=== PATIENT | female | born 1975 | race Caucasian/White ===

== ENCOUNTER → 2016-09-01 | Outpatient (CLI) | payer OTHER ==
[~2016-09-01] MED LIST: ANT25 PO; ATV5X PO; BACL10TA PO; BUTA50TA6 PO; DICL1GEL28 TOP; DICL1GEL34 TOP; HYDR-3983 PO; IBUP-1428 PO; LIDO1OIN4; MECL1TAB42 PO; MELO15TA4 PO; MULT-506 PO; NAPR500T3 PO; NRN600 PO; ONDA4TAB9 PO; RANI150T3 PO; RBX750 PO; TRAM-10 PO
[2016-09-01 10:57] LABS: BASO % 0.4 %; BASO ABS # 0.02 K/uL (0-0.2); COMPLETE YES; HEMATOCRIT 38.2 % (37-47); LYMPH % 34.3 %; LYMPH ABS # 1.92 K/uL (1.2-3.4); MEAN CELL VOLUME 79.9 fL (80-100); MEAN CORPUSCULAR HEMOGLOBIN 25.5 pg (25-34); MEAN CORPUSCULAR HGB CONC 31.9 g/dl (32-36); MEAN PLATELET VOLUME 11.3 fL (7.4-10.4); MONO % 7.5 %; NEUT % 57.8 %; PLATELET COUNT 182 K/uL (130-400); RED BLOOD COUNT 4.78 M/uL (4.2-5.4)
== END | disposition home or self-care (01) ==
LOC: C.LAB1850 09:46
PROVIDERS: ATTEND Obstetrics & Gynecology
DX: N92.6 Irregular menstruation, unspecified (principal)

== ENCOUNTER → 2016-10-28 | Outpatient (CLI) | payer OTHER ==
--- NOTE | 2016-10-28 15:04 | DIAGNOSTIC IMAGING REPORT ---
CHEST 2 VIEWS ROUTINE CLINICAL HISTORY: Right-sided chest wall pain. COMPARISON STUDY: Chest radiograph January 21, 2015. FINDINGS: There is no pneumothorax or pleural effusion. There are cholecystectomy clips. Lung volumes are normal. Cardiac size is normal. Mediastinal contours are normal. There is no consolidation or evidence of pulmonary edema. IMPRESSION: No acute cardiopulmonary findings. Electronically signed by: Elias Carlos M.D. 10/28/2016 3:03 PM Dictated Date/Time: 10/28/2016 3:02 PM
--- NOTE | 2016-10-28 15:06 | DIAGNOSTIC IMAGING REPORT ---
RIGHT RIBS UNILATERAL MIN 2 VIEWS CLINICAL HISTORY: Right inferior posterior rib pain. COMPARISON STUDY: Chest radiograph September 28, 2012 and bilateral rib series September 09, 2010. FINDINGS: No acute right-sided rib fractures are identified. There are cholecystectomy clips. There is no right pneumothorax. IMPRESSION: No acute right rib fractures. Electronically signed by: Elias Carlos M.D. 10/28/2016 3:05 PM Dictated Date/Time: 10/28/2016 3:03 PM
== END | disposition home or self-care (01) ==
LOC: C.RADBC 14:37
PROVIDERS: ATTEND Family Medicine
DX: R07.89 Other chest pain (principal)

== ENCOUNTER 2017-03-01 19:12 | Emergency (ER) | payer OTHER ==
[~2017-03-01] VITALS: Ht 160 cm; Wt 68.1 kg
[~2017-03-01 19:12] MED LIST changes: -DICL1GEL34 TOP; -HYDR-3983 PO; -IBUP-1428 PO; -LIDO1OIN4; -MECL1TAB42 PO; -MELO15TA4 PO; -NAPR500T3 PO; -RBX750 PO
[2017-03-01 19:25] VITALS: TEMP 37; Ht 160 cm; Wt 68.1 kg
[2017-03-01] MEDS ORDERED: XYLOCAINE 1%/SOD BICARB 20 ML VIAL INFIL ONE ×2 (19:32→19:45)
--- NOTE | 2017-03-01 19:32 | EMERGENCY ROOM VISIT NOTE ---
History Report prepared by Santos: Trell Baez Under the Supervision of: Dr. Gaston Casper M.D. First contact with patient: 19:26 Chief Complaint: LACERATION/CUT (SUT/DERMABOND) Stated Complaint: CUT LEFT LEG, BRUISE ON HAND History of Present Illness The patient is a 41 year old female who presents to the Emergency Room with complaints of a mechanical fall that occurred around 3 hours ago. She says that she tripped and fell over bicycles in her shed. The patient notes that she has a laceration on her left knee from hitting the edge of a toolbox. She also started noticing right hand swelling when she got here. The patient denies any loss of consciousness, neck pain, back pain, chest pain, abdominal pain, or elbow pain. She is not on any blood thinners. Her last tetanus shot was 13 years ago. Source of History: patient Onset: 3 hours ago Position: other (global - fall) Quality: other (mechanical) Associated Symptoms: No LOC, No neck pain, No chest pain, No abdominal pain , No back pain Note: Associated symptoms: Laceration on left knee. Right hand swelling. Denies elbow pain. Review of Systems See HPI for pertinent positives & negatives. A total of 6 systems reviewed and were otherwise negative. Past Medical & Surgical Medical Problems: (1) MIGRAINE W/O AURA W/O INTRACT MGRN W/O STATUS MIGRAINOSUS (2) MYALGIA AND MYOSITIS NOS Family History FH: HTN (hypertension) Social History Smoking Status: Never Smoker Drug Use: none Marital Status: Housing Status: lives with family Current/Historical Medications Scheduled Gabapentin (Gabapentin), 1-2 TABS PO HS Multivitamin (Multivitamin), 1 TAB PO QAM Scheduled PRN Baclofen (Lioresal), 10-20 MG PO TID PRN for Muscle Spasms Diclofenac Sod (Voltaren 1% Top Gel), 1 APPLN TOP QID PRN for Pain Ibuprofen (Motrin), 800 MG PO BID PRN for Pain Lorazepam (Lorazepam), 0.5 MG PO HS PRN for Sleep Ondansetron (Ondansetron HCl), 4 MG PO Q4-6HRS PRN for Nausea Ranitidine Hcl (Zantac), 150 MG PO DAILY PRN for PRN Allergies Coded Allergies: Doxepin (Unverified Allergy, Mild, 03/07/15) hallucination Duloxetine (Unverified Allergy, Mild, 03/07/15) hallucination Escitalopram (Unverified Allergy, Mild, 03/01/17) increased depression Fentanyl (Verified Allergy, Mild, NAUSEATED WITH THE PATCHES, 03/01/17) Fluoxetine (Unverified Allergy, Mild, 03/01/17) increase depression Pregabalin (Verified Allergy, Mild, EDEMA, 03/01/17) Tramadol (Unverified Allergy, Mild, 03/01/17) seizure risk Nitrofurantoin (Verified Allergy, Unknown, "RASH, HIVES", 03/01/17) Penicillins (Verified Allergy, Unknown, 03/01/17) Sulfa Antibiotics (Verified Allergy, Unknown, ., 03/01/17) Aspirin (Unverified Adverse Reaction, Mild, HEADACHES, 03/01/17) Cephalexin (Unverified Adverse Reaction, Mild, itchy face, 03/01/17) Physical Exam Vital Signs Date Time Temp Pulse Resp B/P (MAP) Pulse Ox O2 Delivery O2 Flow Rate FiO2 03/01/17 20:33 76 20 138/78 99 03/01/17 19:25 37.0 91 20 145/93 97 Room Air Physical Exam GENERAL: Patient is well appearing and in minimal distress. NECK: No stridor, no adenopathy, no meningismus, trachea is midline. BACK: No midline tenderness, no CVA tenderness EXTREMITIES: Swelling and tenderness to palpation of right hand with ecchymosis , full range of motion, neurovascularly intact. 1.5 cm non-bleeding laceration to left anterior lower thigh, neurovascularly intact. NEUROLOGIC: Alert and oriented, no acute motor or sensory deficits, no focal weakness, cranial nerves grossly intact. SKIN: No rash, no jaundice, no diaphoresis. Medical Decision & Procedures ER Provider Diagnostic Interpretation: X ray results are stated below per my interpretation and the radiologist's interpretation. RIGHT HAND MIN 3 VIEWS ROUTINE CLINICAL HISTORY: right hand cont ustion/bruising Right trauma COMPARISON: None. DISCUSSION: The bones and joint spaces appear intact. There is no evidence of fracture, dislocation or bony disease. There is no evidence for soft tissue swelling. IMPRESSION: Negative study The above report was generated using voice recognition software. It may contain grammatical, syntax or spelling errors. Electronically signed by: Nicolas Muse M.D. 03/01/2017 7:58 PM Dictated Date/Time: 03/01/2017 7:57 PM Medications Administered Medications (Trade) Dose Ordered Sig/Paty Route Start Time Stop Time Status Last Admin Dose Admin Diphtheria/ Pertussis/Tetanus Vacc (Adacel Inj) 0.5 ml ONCE ONCE IM. 03/01/17 19:45 03/01/17 19:46 DC 03/01/17 20:24 0.5 ML ED Course 1925: The patient was evaluated in room A3. A complete history and physical exam was performed. 1944: Ordered Adacel Inj 0.5 ml IM, Buffered Lidocaine 1% Inj 20 ml INFIL. 2019: Reevaluated the patient and she is resting comfortably. Discussed results and discharge instructions: She verbalized understanding and agreement. The patient is ready for discharge. Medical Decision Differential: Intracranial Injury, Cervical Injury, Intrathoracic/Abdominal Injury, Neurologic Injuries, Fractures/Dislocations, Lacerations, Tetanus Status , amongst other pathologies entertained. 41 yr old female with mechanical fall resulting in contusion right hand (no fx on xray) and small laceration left anterior thigh without bleeding nor evidence of deep puncture. Sutured and she was given tetanus update. Stable and feeling well. Reviewed wound/suture and contusion care. Head Trauma GCS Score: 15 Medication Reconcilliation Current Medication List: was personally reviewed by me Blood Pressure Screening Patient's blood pressure: Elevated blood pressure Blood pressure disposition: Elevated BP felt to be situational Impression Primary Impression: Contusion of hand, right Additional Impressions: Laceration of thigh, left [id number] (DTP) vaccination Scribe Attestation The scribe's documentation has been prepared under my direction and personally reviewed by me in its entirety. I confirm that the note above accurately reflects all work, treatment, procedures, and medical decision making performed by me. Departure Information Dispostion Home / Self-Care Referrals Jeramie Larios D.O. (PCP) Patient Instructions Bruises Contusions, ED Laceration All, My [facility] Additional Instructions Monitor for signs of infection. Sutures should be removed by your primary care provider or ED in 7 to 10 days. Problem Qualifiers Additional Impressions: Laceration of thigh, left Encounter type: initial encounter Qualified Codes: S71.112A - Laceration without foreign body, left thigh, initial encounter
[2017-03-01] MEDS ORDERED: DIPHTHERIA/TETANUS/PERTUSSIS 0.5 ML SYR/VIAL IM. ONE (19:45)
[2017-03-01] MEDS ORDERED: IBUP-1428 PO (19:53)
--- NOTE | 2017-03-01 20:00 | DIAGNOSTIC IMAGING REPORT ---
RIGHT HAND MIN 3 VIEWS ROUTINE CLINICAL HISTORY: right hand cont ustion/bruising Right trauma COMPARISON: None. DISCUSSION: The bones and joint spaces appear intact. There is no evidence of fracture, dislocation or bony disease. There is no evidence for soft tissue swelling. IMPRESSION: Negative study. The above report was generated using voice recognition software. It may contain grammatical, syntax or spelling errors. Electronically signed by: Nicolas Muse M.D. 03/01/2017 7:58 PM Dictated Date/Time: 03/01/2017 7:57 PM
--- NOTE | 2017-03-01 20:08 | EMERGENCY ROOM VISIT NOTE ---
ED Visit Note EMERGENCY DEPARTMENT PROCEDURE NOTE: EMERGENCY DEPARTMENT COURSE: The 1.5 cm left thigh wound was prepped with Betadine and draped with sterile towels. The wound was anesthetized with 1% plain buffered lidocaine. The laceration was irrigated copiously using normal saline solution and direct pressure irrigation. The wound was repaired using 3 , 4-0 nylon sutures. Bacitracin and a light dressing were applied. Patient tolerated the procedure well.
[2017-03-01 20:33] VITALS: BP 138/78; PULSE 76; O2SAT 99
== END 2017-03-01 20:35 | disposition home or self-care (01) ==
LOC: C.EDB 19:13 → C.EDA 20:35
DX: S60.221A Contusion of right hand, initial encounter (principal); S71.112A Laceration without foreign body, left thigh, initial encounter; Z23 Encounter for immunization; M79.89 Other specified soft tissue disorders; Z79.899 Other long term (current) drug therapy; Z83.3 Family history of diabetes mellitus; W01.0XXA Fall on same level from slipping, tripping and stumbling without subsequent striking against object, initial encounter

== ENCOUNTER 2017-03-11 16:54 | Emergency (ER) | payer OTHER ==
[~2017-03-11] VITALS: Ht 160 cm; Wt 71.3 kg
[~2017-03-11 16:54] MED LIST changes: -ANT25 PO; -BUTA50TA6 PO; +IBUP-1428 PO; -TRAM-10 PO
[2017-03-11 16:58] VITALS: TEMP 36.9
[2017-03-11] MEDS ORDERED: MECL1TAB42 PO ×2 (17:15→19:06)
[2017-03-11] MEDS ORDERED: DICL1GEL34 TOP (17:15)
[2017-03-11] MEDS ORDERED: SODIUM CHLORIDE 0.9% 1000ML 1,000 ML IV STA (17:20)
--- NOTE | 2017-03-11 17:27 | EMERGENCY ROOM VISIT NOTE ---
History Report prepared by Santos: Sanjuana Swanson Under the Supervision of: Dr. Yaakov Dodge M.D. First contact with patient: 17:11 Chief Complaint: DIZZY Stated Complaint: DIZZY, MAY PASS OUT, SHAKING Nursing Triage Summary: pt reports she was at PCP office and got very dizzy and lightheaded PCP did EKG, Lab work and sent her here for evaluated and admission History of Present Illness The patient is a 41 year old female who presents to the Emergency Room with complaints of worsening generalized weakness that started today. She notes that she has had few a recent syncopal incidents. Her fiance notes that she has uncontrollable arm and leg movements at night. The patient also notes that before a syncope incident her eyes flutter uncontrollably. She also says at times she feels like her body is "ripping inside out". The patient denies having nausea, vomiting, diarrhea, or fever. She states she is scheduled for iron infusions for tomorrow morning Source of History: patient Onset: today Position: other (generalized) Quality: other (weakness) Timing: worsening Associated Symptoms: No fevers, No nausea, No vomiting, No diarrhea Note: associated symptoms: recent syncopal activity and uncontrollable arm and leg movements. Review of Systems See HPI for pertinent positives & negatives. A total of 10 systems reviewed and were otherwise negative. Past Medical & Surgical Medical Problems: (1) MIGRAINE W/O AURA W/O INTRACT MGRN W/O STATUS MIGRAINOSUS (2) MYALGIA AND MYOSITIS NOS Family History FH: HTN (hypertension) Social History Smoking Status: Never Smoker Drug Use: none Marital Status: Housing Status: lives with family Current/Historical Medications Scheduled Gabapentin (Gabapentin), 600-1,200 MG PO HS Multivitamin (Multivitamin), 1 TAB PO QAM Scheduled PRN Baclofen (Lioresal), 10-20 MG PO TID PRN for Muscle Spasms Diclofenac Sodium (Topical) (Diclofenac Sodium), 1 APPLN TOP QID PRN for Pain Ibuprofen (Motrin), 800 MG PO BID PRN for Pain Lorazepam (Lorazepam), 0.5 MG PO HS PRN for Sleep Meclizine Hcl (Meclizine Hcl), 1 TAB PO DIRECTED PRN for Dizziness or Vertigo Meclizine Hcl (Meclizine Hcl), 1 TAB PO TID PRN for Dizziness or Vertigo Ondansetron (Ondansetron HCl), 4 MG PO Q4-6HRS PRN for Nausea Ranitidine Hcl (Zantac), 150 MG PO DAILY PRN for PRN Allergies Coded Allergies: Doxepin (Unverified Allergy, Mild, 03/07/15) hallucination Duloxetine (Unverified Allergy, Mild, 03/07/15) hallucination Escitalopram (Unverified Allergy, Mild, 03/01/17) increased depression Fentanyl (Verified Allergy, Mild, NAUSEATED WITH THE PATCHES, 03/01/17) Fluoxetine (Unverified Allergy, Mild, 03/01/17) increase depression Pregabalin (Verified Allergy, Mild, EDEMA, 03/01/17) Tramadol (Unverified Allergy, Mild, 03/01/17) seizure risk Nitrofurantoin (Verified Allergy, Unknown, "RASH, HIVES", 03/01/17) Penicillins (Verified Allergy, Unknown, 03/01/17) Sulfa Antibiotics (Verified Allergy, Unknown, ., 03/01/17) Aspirin (Unverified Adverse Reaction, Mild, HEADACHES, 03/01/17) Cephalexin (Unverified Adverse Reaction, Mild, itchy face, 03/01/17) Physical Exam Vital Signs Date Time Temp Pulse Resp B/P (MAP) Pulse Ox O2 Delivery O2 Flow Rate FiO2 03/11/17 19:39 74 18 142/87 98 03/11/17 18:43 70 16 134/70 98 Room Air 03/11/17 17:43 98 Room Air 03/11/17 17:43 98 Room Air 03/11/17 17:42 67 03/11/17 17:35 78 134/72 98 Room Air 99 123/88 103 133/97 03/11/17 16:58 36.9 83 16 149/89 100 Room Air Physical Exam GENERAL: Patient is a healthy-appearing well-nourished female HEAD: Normocephalic atraumatic EYES: Ocular movements intact pupils equal and react to light OROPHARYNX mucous membranes are moist no exudates present no erythema or edema present NECK: Supple no nuchal rigidity CHEST: Good equal expansion LUNGS: Clear and equal to auscultation CARDIAC: Normal S1 and S2 ABDOMEN: Soft nontender no guarding BACK: No CVA tenderness EXTREMITIES: No pain upon palpation normal muscle strength in all groups no clubbing cyanosis or edema NEURO: Patient is following commands and answering questions appropriately. Alert and oriented x3 Cranial Nerves 2-12 grossly intact Medical Decision & Procedures ER Provider Diagnostic Interpretation: X-ray results as stated below per interpretation by me and the radiologist: CHEST ONE VIEW PORTABLE CLINICAL HISTORY: Dizziness COMPARISON STUDY: 10/20/2016 FINDINGS: The cardiac and mediastinal contours are normal. There is no evidence of focal pulmonary consolidation. There is no evidence of failure. No pleural effusions are visualized.[ IMPRESSION: No active disease in the chest. Electronically signed by: Ankit Bailey M.D. Laboratory Results 03/11/17 17:30 Red Blood Count 4.55, Mean Corpuscular Volume 81.1, Mean Corpuscular Hemoglobin 25.9, Mean Corpuscular Hemoglobin Concent 32.0, Mean Platelet Volume 10.0, Neutrophils (%) (Auto) 66.4, Lymphocytes (%) (Auto) 26.5, Monocytes (%) (Auto) 7.1, Eosinophils (%) (Auto) 0.0, Basophils (%) (Auto) 0.0, Neutrophils # (Auto) 3.74, Lymphocytes # (Auto) 1.49, Monocytes # (Auto) 0.40, Eosinophils # (Auto) 0.00, Basophils # (Auto) 0.00 03/11/17 17:30 Test 03/11/17 17:30 03/11/17 17:40 03/11/17 17:52 White Blood Count 5.63 K/uL (4.8-10.8) Red Blood Count 4.55 M/uL (4.2-5.4) Hemoglobin 11.8 g/dL (12.0-16.0) Hematocrit 36.9 % (37-47) Mean Corpuscular Volume 81.1 fL (80-100) Mean Corpuscular Hemoglobin 25.9 pg (25-34) Mean Corpuscular Hemoglobin Concent 32.0 g/dl (32-36) Platelet Count 163 K/uL (130-400) Mean Platelet Volume 10.0 fL (7.4-10.4) Neutrophils (%) (Auto) 66.4 % Lymphocytes (%) (Auto) 26.5 % Monocytes (%) (Auto) 7.1 % Eosinophils (%) (Auto) 0.0 % Basophils (%) (Auto) 0.0 % Neutrophils # (Auto) 3.74 K/uL (1.4-6.5) Lymphocytes # (Auto) 1.49 K/uL (1.2-3.4) Monocytes # (Auto) 0.40 K/uL (0.11-0.59) Eosinophils # (Auto) 0.00 K/uL (0-0.5) Basophils # (Auto) 0.00 K/uL (0-0.2) RDW Standard Deviation 42.3 fL (36.4-46.3) RDW Coefficient of Variation 14.4 % (11.5-14.5) Immature Granulocyte % (Auto) 0.0 % Immature Granulocyte # (Auto) 0.00 K/uL (0.00-0.02) Anion Gap 3.0 mmol/L (3-11) Est Creatinine Clear Calc Drug Dose 95.3 ml/min Estimated GFR () 118.9 Estimated GFR (Non- 102.6 BUN/Creatinine Ratio 9.6 (10-20) Calcium Level 8.5 mg/dl (8.5-10.1) Iron Level 34 mcg/dl (35-150) Total Iron Binding Capacity 365 mcg/dl (250-450) Ferritin 3.1 ng/ml (8.0-388.0) Total Bilirubin 0.5 mg/dl (0.2-1) Direct Bilirubin 0.1 mg/dl (0-0.2) Aspartate Amino Transf (AST/SGOT) 6 U/L (15-37) Alanine Aminotransferase (ALT/SGPT) 16 U/L (12-78) Alkaline Phosphatase 48 U/L (45-117) Total Protein 6.9 gm/dl (6.4-8.2) Albumin 3.7 gm/dl (3.4-5.0) Thyroid Stimulating Hormone (TSH) 1.420 uIu/ml (0.300-4.500) Lyme Disease IgG Antibody NEG (NEG) Lyme Disease IgM Antibody NEG (NEG) Urine Color YELLOW Urine Appearance CLEAR (CLEAR) Urine pH 8.0 (4.5-7.5) Urine Specific [place] 1.013 (1.000-1.030) Urine Protein NEG (NEG) Urine Glucose (UA) NEG (NEG) Urine Ketones NEG (NEG) Urine Occult Blood NEG (NEG) Urine Nitrite NEG (NEG) Urine Bilirubin NEG (NEG) Urine Urobilinogen NEG (NEG) Urine Leukocyte Esterase NEG (NEG) Urine Test NEG (NEG) Bedside Glucose 71 mg/dl (70-90) Labs reviewed by ED physician. Medications Administered Medications (Trade) Dose Ordered Sig/Paty Route Start Time Stop Time Status Last Admin Dose Admin Sodium Chloride 1,000 ml @ 999 mls/hr Q1H1M STAT IV 03/11/17 17:20 03/11/17 18:20 DC 03/11/17 17:55 999 MLS/HR Ketorolac Tromethamine (Toradol Inj) 30 mg NOW STAT IV 03/11/17 19:04 03/11/17 19:05 DC 03/11/17 19:20 30 MG Prochlorperazine Edisylate (Compazine Inj) 5 mg NOW STAT IV 03/11/17 19:04 03/11/17 19:05 DC 03/11/17 19:20 5 MG Diphenhydramine HCl (Benadryl Inj) 50 mg NOW STAT IV 03/11/17 19:04 03/11/17 19:05 DC 03/11/17 19:20 50 MG Dexamethasone Sodium Phosphate (Decadron Inj) 10 mg NOW ONCE IV 03/11/17 19:15 03/11/17 19:16 DC 03/11/17 19:20 10 MG ED Course 1715: Past medical records reviewed. The patient was evaluated in room A12. A complete history and physical examination was performed. 1720: Sodium Chloride 1000 ml @ 999 mls/hr. 4: Ordered Benadryl Inj 50 mg IV, Compazine Inj 5 mg IV, Toradol Inj 30 mg IV. 1914: Ordered Decadron Inj 10 mg IV. Upon reexamination the patient is resting. I discussed results and treatment plan with the patient. She verbalizes agreement and understanding. The patient is ready for discharge. Medical Decision Differential diagnosis: Etiologies such as benign positional vertigo, dehydration, hypovolemia, anemia, tumor, infection, hypoglycemia, electrolyte abnormalities, cardiac sources, intracerebral event, toxicologic, neurologic, as well as others were entertained. This is a 41-year-old female who presents emergency Department with multiple complaints. Patient feels that she has a numb face as well as numb this in her hands and feet. She is dizzy anytime she stands up I will note that the patient has a normal CBC normal renal profile normal liver profile area the patient was given a fluid bolus as well as meclizine. Repeat examination revealed much improvement the patient's symptoms. I do feel the patient is well enough to be discharged home for follow-up with her primary care physician. Patient was in agreement with the treatment plan. Impression Primary Impression: Vertigo Scribe Attestation The scribe's documentation has been prepared under my direction and personally reviewed by me in its entirety. I confirm that the note above accurately reflects all work, treatment, procedures, and medical decision making performed by me. Departure Information Dispostion Home / Self-Care Prescriptions Meclizine Hcl (MECLIZINE HCL) 25 Mg Tab 1 TAB PO TID Y for Dizziness or Vertigo for 10 Days, #30 TAB Prov: Yaakov Dodge MD 03/11/17 Referrals No Doctor, Assigned (PCP) Forms HOME CARE DOCUMENTATION FORM, IMPORTANT VISIT INFORMATION Patient Instructions ED BPV Vertigo, My [facility] Additional Instructions You have been examined and treated today on an emergency basis only. This is not a substitute for, or an effort to provide, complete comprehensive medical care. It is impossible to recognize and treat all injuries or illnesses in a single emergency department visit. It is therefore important that you follow up closely with Dr Larios. Call as soon as possible for an appointment. Thank you for your time and consideration. I look forward to speaking with you again soon. Please don't hesitate to call us if you have any questions.
[2017-03-11 17:43] VITALS: O2SAT 98
[2017-03-11 17:46] LABS: COMPLETE YES; HEMATOCRIT 36.9 % (37-47); LYMPH % 26.5 %; LYMPH ABS # 1.49 K/uL (1.2-3.4); MEAN CELL VOLUME 81.1 fL (80-100); MEAN CORPUSCULAR HEMOGLOBIN 25.9 pg (25-34); MONO % 7.1 %; NEUT % 66.4 %; PLATELET COUNT 163 K/uL (130-400); RED BLOOD COUNT 4.55 M/uL (4.2-5.4); WHITE BLOOD COUNT 5.63 K/uL (4.8-10.8)
--- NOTE | 2017-03-11 17:52 | DIAGNOSTIC IMAGING REPORT ---
CHEST ONE VIEW PORTABLE CLINICAL HISTORY: Dizziness COMPARISON STUDY: 10/20/2016 FINDINGS: The cardiac and mediastinal contours are normal. There is no evidence of focal pulmonary consolidation. There is no evidence of failure. No pleural effusions are visualized.[ IMPRESSION: No active disease in the chest. Electronically signed by: Ankit Bailey M.D. 03/11/2017 5:50 PM Dictated Date/Time: 03/11/2017 5:50 PM
[2017-03-11 17:53] VITALS: Ht 160 cm; Wt 71.3 kg
[2017-03-11 18:17] LABS: BUN/CREATININE RATIO 9.6 (10-20); CALCIUM 8.5 mg/dl (8.5-10.1); CREATININE 0.72 mg/dl (0.60-1.20); POTASSIUM 3.8 mmol/L (3.5-5.1)
[2017-03-11 18:26] LABS: FERRITIN 3.1 ng/ml (8.0-388.0); THYROID STIMULATING HORMONE 1.42 uIu/ml (0.300-4.500)
[2017-03-11 18:39] LABS: URINE APPEARANCE CLEAR (CLEAR); URINE BILIRUBIN NEG (NEG); URINE COLOR YELLOW; URINE NITRITE NEG (NEG); URINE SPECIFIC GRAVITY 1.013 (1.000-1.030); UROBILINOGEN NEG (NEG)
[2017-03-11 18:57] LABS: MANUAL MICROSCOPIC REQUIRED? NO; REVIEW REQ? NO
[2017-03-11] MEDS ORDERED: PROCHLORPERAZINE 5 MG/ML 2 ML VIAL IV STA (19:04)
[2017-03-11] MEDS ORDERED: KETOROLAC TROMETHAMINE 30 MG/ML VIAL IV STA (19:04)
[2017-03-11] MEDS ORDERED: DiphenhydrAMINE HCL 50 MG/ML VIAL IV STA (19:04)
[2017-03-11 19:15] LABS: LYME DISEASE AB IGG NEG (NEG)
[2017-03-11] MEDS ORDERED: DEXAMETHASONE SOD INJ 10 MG/ML VIAL IV ONE (19:15)
[2017-03-11 19:16] LABS: LYME DISEASE AB IGM NEG (NEG)
[2017-03-11 19:39] VITALS: BP 142/87; PULSE 74; O2SAT 98
== END 2017-03-11 19:40 | disposition home or self-care (01) ==
LOC: C.EDB 16:55 → C.EDA 19:40
DX: R42 Dizziness and giddiness (principal); G43.909 Migraine, unspecified, not intractable, without status migrainosus; Z82.49 Family history of ischemic heart disease and other diseases of the circulatory system; Z79.899 Other long term (current) drug therapy

== ENCOUNTER → 2017-03-18 | Outpatient (CLI) | payer OTHER ==
[~2017-03-18] MED LIST changes: -DICL1GEL28 TOP; +DICL1GEL34 TOP; +MECL1TAB42 PO
--- NOTE | 2017-03-19 14:05 | MAMMOGRAPHY REPORT ---
BILATERAL FIRST EVER DIGITAL SCREENING MAMMOGRAM TOMOSYNTHESIS WITH CAD: 03/18/2017 CLINICAL HISTORY: Routine screening. Baseline exam. TECHNIQUE: Breast tomosynthesis in addition to standard 2D mammography was performed. Current study was also evaluated with a Computer Aided Detection (CAD) system. COMPARISON: No prior exams were available for comparison. BREAST COMPOSITION: The tissue of both breasts is heterogeneously dense, which may obscure small mas ses. FINDINGS: No suspicious masses, calcifications, or areas of architectural distortion are noted in ei ther breast. IMPRESSION: ACR BI-RADS CATEGORY 1: NEGATIVE There is no mammographic evidence of malignancy. A 1 year screening mammogram is recommended. The pa tient will receive written notification of the results. Approximately 10% of breast cancers are not detected with mammography. A negative mammographic report should not delay biopsy if a clinically suggestive mass is present. Hilda Medrano M.D. ah/:03/18/2017 16:12:40 Loss Prevention Investigator: Marii HAGAN)(Deborah), [facility] letter sent: Normal 1/2 BI-RADS Code: ACR BI-RADS Category 1: Negative
== END | disposition home or self-care (01) ==
LOC: C.MAMM 14:16
PROVIDERS: ATTEND Family Medicine
DX: Z12.31 Encounter for screening mammogram for malignant neoplasm of breast (principal)

== ENCOUNTER → 2017-10-23 | Outpatient (CLI) | payer OTHER ==
[~2017-10-23] MED LIST changes: +CETI10CA PO; +CLON0.5T3 PO; +PRED50TA PO; +ULT50 PO; +[UNRECOGNIZED DRUG - CODE] PO
== END | disposition home or self-care (01) ==
LOC: C.LABBC 11:22
PROVIDERS: ATTEND Internal Medicine Rheumatology
DX: M77.11 Lateral epicondylitis, right elbow (principal); M79.7 Fibromyalgia; M15.0 Primary generalized (osteo)arthritis

== ENCOUNTER 2017-10-30 21:17 | Emergency (ER) | payer OTHER ==
[~2017-10-30] VITALS: Ht 160 cm; Wt 71.5 kg
[~2017-10-30 21:17] MED LIST changes: -CETI10CA PO; -CLON0.5T3 PO; -ONDA4TAB9 PO; -PRED50TA PO; -RANI150T3 PO; -ULT50 PO; -[UNRECOGNIZED DRUG - CODE] PO
[2017-10-30 21:20] VITALS: TEMP 36.6; Ht 160 cm; Wt 71.5 kg
[2017-10-30] MEDS ORDERED: FAMOTIDINE 20MG/5ML IV PUSH IV STA (21:32)
[2017-10-30] MEDS ORDERED: EPINEPHRINE ADULT AUTO-INJECT 0.3 MG SYR IM STA (21:32)
[2017-10-30] MEDS ORDERED: DiphenhydrAMINE HCL 50 MG/ML VIAL IV STA (21:32)
[2017-10-30 21:45] VITALS: O2SAT 97
[2017-10-30] MEDS ORDERED: CETIRIZINE HCL 10 MG TAB PO ONE (21:45)
[2017-10-30] MEDS ORDERED: DEXAMETHASONE **PF** INJ 10 MG/ML VIAL IV ONE (21:45)
[2017-10-30] MEDS ORDERED: RANI150T3 PO (22:32)
[2017-10-30] MEDS ORDERED: ONDA4TAB9 PO (22:32)
[2017-10-30 22:34] VITALS: BP 158/95; PULSE 86
[2017-10-30] MEDS ORDERED: [UNRECOGNIZED DRUG - CODE] PO (22:34)
[2017-10-30] MEDS ORDERED: CLON0.5T3 PO (22:34)
[2017-10-30] MEDS ORDERED: ULT50 PO (22:34)
--- NOTE | 2017-10-30 22:34 | EMERGENCY ROOM VISIT NOTE ---
History First contact with patient: 21:25 Chief Complaint: ALLERGIC REACTION Stated Complaint: HIVES TIGHT THROAT History of Present Illness The patient is a 42 year old female who presents to the Emergency Room with complaints of worsening hives for the past day has had chronic hives for the past several months. Patient is currently being worked up by an artillery officer. She has been on steroids for the past 2 weeks. She tried Benadryl earlier tonight with no relief of symptoms. She is not on a daily allergy medicine. Patient claims of some throat itchiness. Patient denies chest pain, dyspnea, fever, chills, cough, congestion, the food soaps or detergents. Review of Systems An 10 system review of systems was completed with positives and pertinent negatives listed in the HPI. Past Medical/Surgical History Medical Problems: (1) MIGRAINE W/O AURA W/O INTRACT MGRN W/O STATUS MIGRAINOSUS (2) MYALGIA AND MYOSITIS NOS Family History FH: HTN (hypertension) Social History Smoking Status: Never Smoker Drug Use: none Marital Status: Housing Status: lives with family Current/Historical Medications Scheduled Gabapentin (Gabapentin), 600-1,200 MG PO HS Multivitamin (Multivitamin), 1 TAB PO QAM Scheduled PRN Baclofen (Lioresal), 10-20 MG PO TID PRN for Muscle Spasms Diclofenac Sodium (Topical) (Diclofenac Sodium), 1 APPLN TOP QID PRN for Pain Ibuprofen (Motrin), 800 MG PO BID PRN for Pain Lorazepam (Lorazepam), 0.5 MG PO HS PRN for Sleep Meclizine Hcl (Meclizine Hcl), 1 TAB PO DIRECTED PRN for Dizziness or Vertigo Ondansetron (Ondansetron HCl), 4 MG PO Q4-6HRS PRN for Nausea Ranitidine Hcl (Zantac), 150 MG PO DAILY PRN for PRN Physical Exam Vital Signs Date Time Temp Pulse Resp B/P (MAP) Pulse Ox O2 Delivery O2 Flow Rate FiO2 10/30/17 22:07 98 Room Air 10/30/17 21:45 97 Room Air 10/30/17 21:20 36.6 103 20 154/100 95 Room Air Physical Exam VITALS: Vitals are noted on the nurse's note and reviewed by myself. Vital signs hypertensive. GENERAL: Pleasant female, in no acute distress, nondiaphoretic, well-developed well-nourished. SKIN: Diffuse erythematous blanchable dermatitis most consistent with hives. The rest of the skin was without rashes, erythema, edema, or bruising. There is no tenting of the skin. Capillary reflex less than 2 seconds. HEAD: Normocephalic atraumatic. EARS: External auditory canals clear, tympanic membranes pearly hernandez without erythema or effusion bilaterally. EYES: Pupils equal round and reactive to light and accommodation. Conjunctivae without injection, sclerae without icterus. Extraocular movements intact. NOSE: Patent, turbinates without inflammation or discharge. MOUTH: Mucous membranes moist. Pharynx without erythema or exudate. Uvula midline. Airway patent. Tongue does not deviate. NECK: Supple without nuchal rigidity. No lymphadenopathy. No thyromegaly. Cervical spine is nontender. No JVD. HEART: Regular rate and rhythm without murmurs gallops or rubs. LUNGS: Clear to auscultation bilaterally without wheezes, rales or rhonchi. No retractions or accessory muscle use. ABDOMEN: Positive bowel sounds x 4. Normal tympanic percussion. Soft, nontender, without masses or organomegaly. Naranjo sign negative. No guarding or rebound tenderness. No CVA tenderness MUSCULOSKELETAL: No muscle atrophy, erythema, or edema noted. NEURO: Patient was alert and oriented to person place and time. Normal sensation to light and sharp touch. No focal neurological deficits. Medical Decision & Procedures Medications Administered Medications (Trade) Dose Ordered Sig/Paty Route Start Time Stop Time Status Last Admin Dose Admin Dexamethasone Sodium Phosphate (Dexamethasone Inj Pf) 10 mg NOW ONCE IV 10/30/17 21:45 10/30/17 21:46 DC 10/30/17 21:57 10 MG Famotidine (Pepcid 20mg Iv Push) 20 mg ONE STAT IV 10/30/17 21:32 10/30/17 21:35 DC 10/30/17 21:57 20 MG Diphenhydramine HCl (Benadryl Inj) 50 mg NOW STAT IV 10/30/17 21:32 10/30/17 21:35 DC 10/30/17 21:57 50 MG Cetirizine HCl (zyrTEC TAB) 10 mg NOW ONCE PO 10/30/17 21:45 10/30/17 21:46 DC 10/30/17 21:57 10 MG Epinephrine (Epipen) 0.3 mg NOW STAT IM 10/30/17 21:32 10/30/17 21:35 DC 10/30/17 22:11 0.3 MG ED Course Prior records/ancillary studies reviewed. Triage Nursing notes reviewed. Additional history obtained from family. The patient's history was concerning for possible allergic reaction. Differential diagnosis: Etiologies such as allergic reaction, anaphylaxis, urticaria, [place]-Triston syndrome, toxic epidermal necrolysis, erythema multiforme, cellulitis, as well as others were entertained. Physical examination: As above. ER treatment provided: Continuous cardiac monitoring Benadryl 50 mg IV Pepcid 20 mg IV Decadron 10 mg IV Zyrtec 10 mg p.o. On reassessment the patient felt better. Diagnostic interpretation by me: Deferred It appears the patient had an allergic reaction. This has been a chronic problem that got progressively worse for the past day. Patient was advised to take a daily allergy medicine also. She is advised to follow-up as scheduled with her artillery officer. The above treatment did well to reverse the symptoms. After prolonged monitoring and frequent reassessments the patient did very well and symptoms resolved. The patient was counseled on the spectrum of this disease process and told to avoid potential triggers. I gave my usual and customary discussion regarding this issue. By the evaluation outlined above emergent etiologies such as recurring anaphylaxis, anaphylatic shock, airway compromise, [place]-Triston syndrome, toxic epidermal necrolysis, erythema multiforme, infectious etiologies, as well as others were deemed relatively unlikely. The pt informed about the findings as listed above. All questions were answered and pleased with the treatment. Return instructions were outlined and the patient was discharged in stable condition. Outpatient prescription management: EpiPen prednisone Referral: The patient was referred back to primary care physician for follow-up in 2-3 days for a recheck of the current condition. or The patient was referred to Allergy/Immunology for further evaluation. The chart was completed utilizing [employer] voice recognition software. Grammatical errors, random word insertions, pronoun errors, and incomplete sentences are an occassional consequence of this system due to software limitations, ambient noise, and hardware issues. Any formal questions or concerns about the content, text, or information contained within the body of this dictation should be directly addressed to the physician assistant county attorney for clarification. Medical Decision As above Medication Reconcilliation Current Medication List: was personally reviewed by me Blood Pressure Screening Patient's blood pressure: Elevated blood pressure Blood pressure disposition: Elevated BP felt to be situational Impression Primary Impression: Urticaria Departure Information Dispostion Home / Self-Care Condition GOOD Referrals Jeramie Larios D.O. (PCP) Patient Instructions My [facility] Additional Instructions DO NOT drive, drink alcohol, operate machinery, or perform dangerous activities today. You were given medications in the ER that can affect your ability to safely function or operate a vehicle. Epi-Pen: Use one injection as instructed for severe allergic reactions associated with shortness of breath, difficulty breathing, or throat or tongue swelling. If you use this injection call 911 or proceed immediately to the nearest Emergency Room. Take Zyrtec daily. This is [id number] or you can use a prescription. Prednisone 50mg: Once daily until the prescription is finished. It is best to take this earlier in the day as some patients note occasional difficulty falling asleep when taken in the late evening. Diphenhydramine(Benadryl) 25mg: use 25 to 50 mg every six hours for swelling, itching, or hives. This medication is sedating and will cause drowsiness. Avoid alcohol, operating machinery or dangerous equipment, working on ladders or roofs, DRIVING, or situations where being under the influence may be dangerous. Zantac 75: Take two pills twice a day along with Benadryl as needed for swelling , itching, or hives. Most people know this for its affect on the stomach, but it also acts similar to, but less potent than Benadryl for allergic reactions. Both the Benadryl and the Zantac are available [id number]. Continue current medications. Return to the emergency department for worsening of your rash, swelling of your face, lips, tongue, or throat, difficulty breathing, vomiting, or as needed. Follow-up with your primary care physician in 2 to 3 days for a recheck of your current condition.
[2017-10-30] MEDS ORDERED: CETI10CA PO (22:35)
[2017-10-30] MEDS ORDERED: PRED50TA PO (22:35)
--- NOTE | 2017-10-30 22:39 | EMERGENCY ROOM VISIT NOTE ---
ED Visit Note First contact with patient: 21:25 Patient was seen by our PA/BALANCE STAFF STAKER. I was involved in the patient's care and did evaluate the patient myself. I was involved in the care throughout the ER stay. The patient presents with urticaria. She is not hypoxic. There is no airway compromise, no wheezing or uvular edema. The patient is being discharged on antihistamines and prednisone. She was given an EpiPen to use if needed. She will follow with her doctor and with an diesel locomotive firer/fireman.
[2017-10-30 22:47] VITALS: O2SAT 97
== END 2017-10-30 22:49 | disposition home or self-care (01) ==
LOC: C.EDB 21:18 → C.EDA 22:49
DX: L50.9 Urticaria, unspecified (principal); Z79.52 Long term (current) use of systemic steroids; Z82.49 Family history of ischemic heart disease and other diseases of the circulatory system; Z79.899 Other long term (current) drug therapy

== ENCOUNTER 2017-12-20 16:57 | Emergency (ER) | payer OTHER ==
[~2017-12-20] VITALS: Ht 160 cm; Wt 70.0 kg
[~2017-12-20 16:57] MED LIST changes: -ATV5X PO; +CLON0.5T3 PO; -IBUP-1428 PO
[2017-12-20 16:59] VITALS: TEMP 37; Ht 160 cm; Wt 70.0 kg
[2017-12-20] MEDS ORDERED: METHYLPREDNISOLONE 125 MG VIAL IV STA (17:10)
[2017-12-20] MEDS ORDERED: FAMOTIDINE 20MG/5ML IV PUSH IV STA (17:10)
[2017-12-20] MEDS ORDERED: SODIUM CHLORIDE 0.9% 1000ML 1,000 ML IV STA (17:10)
[2017-12-20] MEDS ORDERED: DiphenhydrAMINE HCL 50 MG/ML VIAL IV STA (17:10)
--- NOTE | 2017-12-20 17:13 | EMERGENCY ROOM VISIT NOTE ---
History Report prepared by Santos: Peterson Joel Under the Supervision of: Dr. Jose Sesay M.D. First contact with patient: 17:04 Chief Complaint: ALLERGIC REACTION Stated Complaint: HIVES IN HER THROAT History of Present Illness The patient is a 42 year old female who presents to the Emergency Room with complaints of a constant allergic reaction that started at 1400. The patient states she has a history of chronic hives and is unsure why she has it. She reports she woke up at 1400 this afternoon with hives all over her body. The patient states she started to become short of breath at 1500 and feels as if her throat is closing. She reports she used her EpiPen at 1630 and took Zyrtec. Source of History: patient Onset: 1400 Position: other (global) Symptom Intensity: 02/09 Quality: other (hives) Timing: constant Modifying Factors (Relieving): other (Epipen, Zyrtec) Associated Symptoms: + SOB Note: Associated symptoms: throat closing Review of Systems See HPI for pertinent positives and negatives. A total of ten systems were reviewed and were otherwise negative. Past Medical & Surgical Medical Problems: (1) MIGRAINE W/O AURA W/O INTRACT MGRN W/O STATUS MIGRAINOSUS (2) MYALGIA AND MYOSITIS NOS Family History FH: HTN (hypertension) Social History Smoking Status: Never Smoker Drug Use: none Marital Status: Housing Status: lives with family Current/Historical Medications Scheduled Clonazepam (Clonazepam), 0.5 MG PO HS Gabapentin (Gabapentin), 600-1,200 MG PO HS Montelukast Sod (Montelukast Sodium), 10 MG PO DAILY Multivitamin (Multivitamin), 1 TAB PO QAM Scheduled PRN Baclofen (Baclofen), 10-20 MG PO TID PRN for Muscle Spasm Diclofenac Sodium (Topical) (Voltaren 1% Top Gel), 1 APPLN TOP QID PRN for Pain Epinephrine (Epipen), 0.3 MG IM UD PRN for Allergic Reaction Ibuprofen (Motrin), 800 MG PO BID PRN for Pain Meclizine HCl (Meclizine HCl), 25 MG PO TID PRN for Dizziness or Vertigo Ondansetron (Ondansetron HCl), 4 MG PO Q8 PRN for Nausea or Vomiting Ranitidine Hcl (Zantac), 150 MG PO DAILY PRN for Indigestion Rizatriptan Benzoate (Rizatriptan Benzoate), 5 MG PO UD PRN for Headache Tramadol HCl (Tramadol HCl), 50 MG PO Q6H PRN for Pain Allergies Coded Allergies: Doxepin (Unverified Allergy, Mild, 03/07/15) hallucination Duloxetine (Unverified Allergy, Mild, 03/07/15) hallucination Escitalopram (Unverified Allergy, Mild, 03/01/17) increased depression Fentanyl (Verified Allergy, Mild, NAUSEATED WITH THE PATCHES, 03/01/17) Fluoxetine (Unverified Allergy, Mild, 03/01/17) increase depression Pregabalin (Verified Allergy, Mild, EDEMA, 03/01/17) Nitrofurantoin (Verified Allergy, Unknown, "RASH, HIVES", 03/01/17) Penicillins (Verified Allergy, Unknown, 03/01/17) Sulfa Antibiotics (Verified Allergy, Unknown, ., 03/01/17) Aspirin (Unverified Adverse Reaction, Mild, HEADACHES, 03/01/17) Cephalexin (Unverified Adverse Reaction, Mild, itchy face, 03/01/17) Physical Exam Vital Signs Date Time Temp Pulse Resp B/P (MAP) Pulse Ox O2 Delivery O2 Flow Rate FiO2 12/20/17 18:36 78 18 128/77 98 Room Air 12/20/17 18:20 75 18 130/96 97 Room Air 12/20/17 17:38 82 20 139/78 100 Room Air 12/20/17 17:34 100 Room Air 12/20/17 17:21 75 12/20/17 16:59 37.0 101 24 142/80 98 Room Air Physical Exam Physical Exam GENERAL: She is oriented to person, place, and time. She appears well- developed and well-nourished. She does not appear distressed. ____ HENT: Exam performed. Head: Normocephalic and atraumatic. Right Ear: External ear normal. No mastoid tenderness. Left Ear: External ear normal. No mastoid tenderness. Mouth/Throat: The oropharynx is clear and moist. No trismus in the jaw. No dental abscesses or uvula swelling. No oropharyngeal exudate or tonsillar abscesses. No tongue or lip swelling. No oropharyngeal edema. No stridor.____ EYES: Conjunctivae and EOM are normal. Pupils are equal, round, and reactive to light. Right eye exhibits no discharge. Left eye exhibits no discharge. No scleral icterus. ____ NECK: Normal range of motion. Neck supple. No JVD present. No spinous process tenderness present. No carotid bruit present. No rigidity. No tracheal deviation and normal range of motion present. No Brudzinski's sign and no Kernig 's sign noted. ____ CV: Normal rate, regular rhythm, normal heart sounds and intact distal pulses. There is no peripheral edema. Palpable radial pulses bue. ____ PULM/CHEST: Effort normal and breath sounds normal. No respiratory distress. No stridor. She has no wheezes. she has no rales. Chest Wall: She exhibits no tenderness. ____ ABD: The abdomen is soft. Bowel sounds are normal. She has no distension. No mass is present. There is no tenderness. There is no rebound, no guarding, no Naranjo's sign and no tenderness at McBurney's point. Rovsig negative MUSC/SKEL: Normal range of motion. There is no peripheral edema, tenderness or deformity. LYMPH: No cervical adenopathy. ____ NEURO: She is alert and oriented to person, place, and time. She has normal strength. No cranial nerve deficit or sensory deficit. Coordination and gait normal. GCS eye subscore is 4. GCS verbal subscore is 5. GCS motor subscore is 6. Cerebellar tests wnl. ____ SKIN: Skin is warm and dry. She is not diaphoretic. ____ PSYCH: She has a normal mood and affect. Her behavior is normal. Judgment and thought content normal. ____ Medical Decision & Procedures Medications Administered Medications (Trade) Dose Ordered Sig/Paty Route Start Time Stop Time Status Last Admin Dose Admin Sodium Chloride 1,000 ml @ 999 mls/hr Q1H1M STAT IV 12/20/17 17:10 12/20/17 18:10 DC 12/20/17 17:21 999 MLS/HR Methylprednisolone Sodium Succinate (Solu-Medrol IV) 125 mg NOW STAT IV 12/20/17 17:10 12/20/17 17:12 DC 12/20/17 17:22 125 MG Diphenhydramine HCl (Benadryl Inj) 50 mg NOW STAT IV 12/20/17 17:10 12/20/17 17:12 DC 12/20/17 17:22 50 MG Famotidine (Pepcid 20mg Iv Push) 20 mg ONE STAT IV 12/20/17 17:10 12/20/17 17:12 DC 12/20/17 17:21 20 MG ED Course 1707: The patient was evaluated in room B03B. A complete history and physical exam was performed. 1710: Ordered Famotidine 20 mg IV, Benadryl Injection 50 mg IV, Solu-Medrol 125 mg IV, Sodium Chloride 1000 ml @ 999 mls/hr IV. 1840: I reevaluated the patient. Her vital signs are stable. Her oxygen saturation is stable on room air. There is no wheezing, tongue swelling, lip swelling, or stridor. The patient will be discharged with a follow up with her PCP and sheep farmer. She will be discharged on a prescription refill of her EpiPen. DISCHARGE - Plan of care discussed with patient and questions answered. The patient was given both verbal and printed discharge instructions. The patient verbalized understanding and ability to comply. The patient is to seek outpatient follow up as noted in the discharge instructions. The patient verbalized understanding and ability to comply. The patient is discharged in stable condition. The patient was instructed to return for worsening symptoms. Medical Decision 1707: The patient was evaluated in room B03B. A complete history and physical exam was performed. 1710: Ordered Famotidine 20 mg IV, Benadryl Injection 50 mg IV, Solu-Medrol 125 mg IV, Sodium Chloride 1000 ml @ 999 mls/hr IV. 1840: I reevaluated the patient. Her vital signs are stable. Her oxygen saturation is stable on room air. There is no wheezing, tongue swelling, lip swelling, or stridor. The patient will be discharged with a follow up with her PCP and sheep farmer. She will be discharged on a prescription refill of her EpiPen. DISCHARGE - Plan of care discussed with patient and questions answered. The patient was given both verbal and printed discharge instructions. The patient verbalized understanding and ability to comply. The patient is to seek outpatient follow up as noted in the discharge instructions. The patient verbalized understanding and ability to comply. The patient is discharged in stable condition. The patient was instructed to return for worsening symptoms. Medication Reconcilliation Current Medication List: was personally reviewed by me Blood Pressure Screening Patient's blood pressure: Elevated blood pressure Blood pressure disposition: Elevated BP felt to be situational Impression Primary Impression: Allergic reaction Scribe Attestation The scribe's documentation has been prepared under my direction and personally reviewed by me in its entirety. I confirm that the note above accurately reflects all work, treatment, procedures, and medical decision making performed by me. The chart was completed utilizing [employer] voice recognition software. Grammatical errors, random word insertions, pronoun errors, and incomplete sentences are an occasional consequence of this system due to software limitations, ambient noise, and hardware issues. Any formal questions or concerns about the content, text, or information contained within the body of this dictation should be directly addressed to the physician for clarification. Departure Information Dispostion Home / Self-Care Prescriptions Epinephrine (EPIPEN) 0.3 Mg/0.3 Ml Inj 0.3 MG IM UD Y for Allergic Reaction, #1 UNIT 2 Refills Prov: Jose Sesay M.D. 12/20/17 Referrals Jeramie Larios D.O. (PCP) Forms HOME CARE DOCUMENTATION FORM, IMPORTANT VISIT INFORMATION Patient Instructions First Aid Allergic React, My [facility] Additional Instructions Return to the emergency department if he developed fever greater than 100.4, difficulty breathing, difficulty swallowing. Problem Qualifiers Primary Impression: Allergic reaction Encounter type: initial encounter Qualified Codes: T78.40XA - Allergy, unspecified, initial encounter
[2017-12-20] MEDS ORDERED: LRS10 PO (17:54)
[2017-12-20] MEDS ORDERED: ANT25 PO (17:54)
[2017-12-20] MEDS ORDERED: KLN5X PO (17:54)
[2017-12-20] MEDS ORDERED: SNG10 PO (17:54)
[2017-12-20] MEDS ORDERED: DICL1GEL12 TOP (17:54)
[2017-12-20 18:36] VITALS: BP 128/77; PULSE 78; O2SAT 98
[2017-12-20] MEDS ORDERED: EPP3/2 IM (18:43)
[2017-12-20] MEDS ORDERED: IBUP-1428 PO (19:53)
[2017-12-20] MEDS ORDERED: ONDA4TAB9 PO (22:32)
[2017-12-20] MEDS ORDERED: RANI150T3 PO (22:32)
[2017-12-20] MEDS ORDERED: [UNRECOGNIZED DRUG - CODE] PO (22:34)
[2017-12-20] MEDS ORDERED: ULT50 PO (22:34)
== END 2017-12-20 18:55 | disposition home or self-care (01) ==
LOC: C.EDB 16:59
DX: T78.40XA Allergy, unspecified, initial encounter (principal); X58.XXXA Exposure to other specified factors, initial encounter; L50.0 Allergic urticaria; Z82.49 Family history of ischemic heart disease and other diseases of the circulatory system; Z79.899 Other long term (current) drug therapy; Z88.6 Allergy status to analgesic agent; Z88.0 Allergy status to penicillin; Z88.1 Allergy status to other antibiotic agents; Z88.8 Allergy status to other drugs, medicaments and biological substances